=== PATIENT | female | born 1995 | race Caucasian/White ===

== ENCOUNTER 2018-08-03 19:29 | Inpatient (IN) | payer OTHER ==
[2018-08-03] MEDS: HYDROmorphONE 2 MG/ML SYG IV ×2 (19:46→22:44)
[2018-08-03] MEDS: ONDANSETRON 4 MG INJ IV ×3 (19:46→22:44)
[2018-08-03] MEDS: HYDROmorphONE 1 MG/ML SYG IV (20:25)
[2018-08-03 21:11] LABS: ADD MAN DIFF? NO
[2018-08-03 21:16] LABS: WHITE BLOOD COUNT 9.6 10^3/ul (4.8-10.8)
[2018-08-03 21:16] LABS: BASOPHILS % 0.3 % (0.0-2.0); EOSINOPHILS # 0.1 10^3/ul (0.0-0.5); HEMATOCRIT 39.8 % (37.0-47.0); HEMOGLOBIN 12.7 g/dl (12.0-16.0); LYMPHOCYTES # 2.6 10^3/ul (0.8-2.9); LYMPHOCYTES % 27.2 % (15.0-51.0); MEAN CORPUSCULAR HEMOGLOBIN 27.7 pg (29.0-33.0); MEAN CORPUSCULAR HGB CONC 31.9 g/dl (32.0-37.0); MEAN CORPUSCULAR VOLUME 86.7 fl (82.0-101.0); MEAN PLATELET VOLUME 11.3 fl (7.4-10.4); MONOCYTE # 0.6 10^3/ul (0.3-0.9); MONOCYTES % 6.4 % (0.0-11.0); NEUTROPHIL # 6.2 10^3/ul (1.6-7.5); NEUTROPHILS % 64.8 % (39.0-77.0); PLATELET COUNT 244 10^3/UL (140-415); RED BLOOD COUNT 4.59 10^6/ul (4.20-5.40)
[2018-08-03 21:34] LABS: INR 0.89; PROTIME 12.2 Sec (11.9-14.9)
[2018-08-03 21:35] LABS: PARTIAL THROMBOPLASTIN TIME 26.8 Sec (23.0-35.0)
[2018-08-03 21:40] LABS: ALANINE AMINOTRANSFERASE 20 IU/L (13-69); ALBUMIN 4.4 g/dl (3.3-4.9); ALBUMIN/GLOBULIN RATIO 1.18; ALKALINE PHOSPHATASE 87 IU/L (42-121); ANION GAP 10 (5-13); ASPARTATE AMINO TRANSFERASE 20 IU/L (15-46); BILIRUBIN,INDIRECT 0.3 mg/dl (0-1.1); BILIRUBIN,TOTAL 0.3 mg/dl (0.2-1.3); BLOOD UREA NITROGEN 10 mg/dl (7-20); CALCIUM 9.5 mg/dl (8.4-10.2); CARBON DIOXIDE 24 mmol/L (21-31); CHLORIDE 108 mmol/L (97-110); CREATININE 0.73 mg/dl (0.44-1.00); Estimated GFR > 60 mL/min (>60); GLUCOSE 104 mg/dl (70-220); POTASSIUM 3.7 mmol/L (3.5-5.1); SODIUM 142 mmol/L (135-144); TOTAL PROTEIN 8.1 g/dl (6.1-8.1)
[2018-08-03] MEDS ORDERED: ACETAMINOPHEN 325 MG TAB PO (22:30)
[2018-08-04] MEDS: SOD CHLORIDE 0.9% 100 ML (00:04)
[2018-08-04] MEDS: IOHEXOL 300MG/ML 150 ML BTL (00:04)
[2018-08-04] MEDS ORDERED: HYDROCODONE/APAP (5/325) TAB PO (01:30)
[2018-08-04] MEDS ORDERED: NACL 0.9% 3 ML SYG IV ×2 (01:30→08:30)
[2018-08-04] MEDS ORDERED: ACETAMINOPHEN 325 MG TAB PO (01:30)
[2018-08-04] MEDS ORDERED: DOCUSATE SODIUM 100 MG CAP PO (01:30)
[2018-08-04] MEDS ORDERED: ONDANSETRON 4 MG TAB PO (01:30)
[2018-08-04] MEDS: FAMOTIDINE 20 MG TAB PO ×3 (01:52→20:17)
[2018-08-04] MEDS: HYDROCODONE/APAP (5/325) TAB PO (01:53)
[2018-08-04] MEDS: D5-NS + KCL 20 MEQ 1,000 ML IV ×3 (01:53→20:17)
[2018-08-04] MEDS: HYDROmorphONE 1 MG/ML SYG IV ×3 (05:30→20:16)
[2018-08-04] MEDS ORDERED: PROPOFOL 20 ML (06:24)
[2018-08-04 06:26] LABS: ADD UMIC YES; UR ASCORBIC ACID NEGATIVE (NEGATIVE); UR BACTERIA FEW /HPF (NONE SEEN); UR BILIRUBIN (Dip) NEGATIVE (NEGATIVE); UR BLOOD (Dip) 3+ mg/dL (NEGATIVE); UR CALCIUM OXALATE CRYSTAL FEW /HPF (NONE SEEN); UR CLARITY SLIGHTLY CLOUDY (CLEAR); UR COLOR AMBER (YELLOW); UR GLUCOSE (Dip) NEGATIVE (NEGATIVE); UR KETONES (Dip) NEGATIVE (NEGATIVE); UR LEUKOCYTE ESTERASE (Dip) NEGATIVE Leu/ul (NEGATIVE); UR MUCUS FEW /HPF (NONE SEEN); UR NITRITE (Dip) NEGATIVE (NEGATIVE); UR RBC > 182 /HPF (0-5); UR SPECIFIC GRAVITY (Dip) 1.059 (1.003-1.030); UR SQUAMOUS EPITHELIAL CELL FEW /HPF (FEW); UR TOTAL PROTEIN (Dip) 1+ mg/dl (NEGATIVE); UR UROBILINOGEN (Dip) NEGATIVE (NEGATIVE); UR WBC 20 /HPF (0-5)
[2018-08-04] MEDS ORDERED: ROCURONIUM 50 MG INJ (06:39)
[2018-08-04] MEDS ORDERED: DEXAMETHASONE 4 MG/ML 5 ML INJ (06:39)
[2018-08-04] MEDS ORDERED: LIDOCAINE 2% (SDV) 5 ML INJ (06:39)
[2018-08-04] MEDS ORDERED: ONDANSETRON 4 MG INJ (06:40)
[2018-08-04] MEDS ORDERED: morphine 10 MG INJ (06:52)
[2018-08-04] MEDS ORDERED: KETOROLAC 30 MG INJ (07:49)
[2018-08-04] MEDS ORDERED: FENTAnyl 50 MCG/ML VIAL (08:25)
[2018-08-04] MEDS: LACTATED RINGER'S 1,000 ML IV ×2 (08:29→19:51)
[2018-08-04] MEDS ORDERED: DIPHENHYDRAMINE 50 MG INJ IV ×2 (08:30)
[2018-08-04] MEDS ORDERED: oxyCODONE 5 MG TAB PO (08:30)
[2018-08-04] MEDS ORDERED: hydrALAzine 20 MG INJ IV (08:30)
[2018-08-04] MEDS ORDERED: NA PHOSPHATE/BIPHOS 133 ML ENEMA PR (08:30)
[2018-08-04] MEDS ORDERED: SENNA/DOCUSATE NA (8.6MG/50MG) TAB PO (08:30)
[2018-08-04] MEDS ORDERED: EPHEDrine 25 MG/5 ML SYG IV (08:30)
[2018-08-04] MEDS ORDERED: KETOROLAC 30 MG INJ IV (08:30)
[2018-08-04] MEDS ORDERED: BISACODYL 10 MG SUPP PR (08:30)
[2018-08-04] MEDS ORDERED: LABETALOL HCL 20MG INJ IV (08:30)
[2018-08-04] MEDS: CEFAZOLIN 2 GM/50 ML (PMX) 50 ML IVPB ×2 (08:30→15:27)
[2018-08-04] MEDS ORDERED: FENTAnyl 50 MCG/ML VIAL IV ×2 (08:30)
[2018-08-04] MEDS ORDERED: MEPERIDINE 25 MG INJ IV (08:30)
[2018-08-04] MEDS ORDERED: METOCLOPRAMIDE 10 MG INJ IV (08:30)
[2018-08-04] MEDS ORDERED: NALOXONE (0.4 MG/ML) INJ IV (08:30)
[2018-08-04] MEDS ORDERED: MAGNESIUM HYDROXIDE 30ML CUP PO (08:30)
[2018-08-04] MEDS ORDERED: HYDROmorphONE 1 MG/5 ML IV SYRINGE IV (08:30)
[2018-08-04] MEDS ORDERED: ALBUTEROL 0.083% (NEB) 2.5 MG/3 ML AMP HHN (08:30)
[2018-08-04] MEDS ORDERED: MIDAZOLAM 1 MG/ML 2 ML INJ IV (08:30)
[2018-08-04] MEDS: FENTAnyl 50 MCG/ML VIAL IV ×2 (08:34→08:36)
[2018-08-04] MEDS: HYDROmorphONE 1 MG/5 ML IV SYRINGE IV ×2 (08:47→09:02)
[2018-08-04] MEDS: ONDANSETRON 4 MG INJ IV (08:48)
[2018-08-04] MEDS: DOCUSATE SODIUM 100 MG CAP PO (12:35)
[2018-08-04] MEDS: oxyCODONE 5 MG TAB PO ×3 (12:35→22:46)
[2018-08-04] MEDS: ACETAMINOPHEN 500 MG TAB PO ×2 (14:00→21:53)
[2018-08-04] MEDS: GABAPENTIN 300 MG CAP PO (20:17)
[2018-08-05] MEDS: CEFAZOLIN 2 GM/50 ML (PMX) 50 ML IVPB (00:01)
[2018-08-05] MEDS: D5-NS + KCL 20 MEQ 1,000 ML IV (00:02)
[2018-08-05] MEDS: oxyCODONE 5 MG TAB PO ×4 (03:13→15:46)
[2018-08-05 04:58] LABS: ADD MAN DIFF? NO; BASOPHILS % 0.2 % (0.0-2.0); EOSINOPHILS % 0.2 % (0.0-7.0); HEMATOCRIT 30.1 % (37.0-47.0); HEMOGLOBIN 9.7 g/dl (12.0-16.0); LYMPHOCYTES # 1.8 10^3/ul (0.8-2.9); LYMPHOCYTES % 18.8 % (15.0-51.0); MEAN CORPUSCULAR HEMOGLOBIN 28.3 pg (29.0-33.0); MEAN CORPUSCULAR HGB CONC 32.2 g/dl (32.0-37.0); MEAN CORPUSCULAR VOLUME 87.8 fl (82.0-101.0); MEAN PLATELET VOLUME 11.4 fl (7.4-10.4); MONOCYTE # 0.9 10^3/ul (0.3-0.9); MONOCYTES % 9.4 % (0.0-11.0); NEUTROPHIL # 6.9 10^3/ul (1.6-7.5); PLATELET COUNT 194 10^3/UL (140-415); RED BLOOD COUNT 3.43 10^6/ul (4.20-5.40); RED CELL DISTRIBUTION WIDTH 13.8 % (11.5-14.5)
[2018-08-05 04:58] LABS: WHITE BLOOD COUNT 9.7 10^3/ul (4.8-10.8)
[2018-08-05 05:22] LABS: ANION GAP 7 (5-13); BLOOD UREA NITROGEN 4 mg/dl (7-20); CALCIUM 8.4 mg/dl (8.4-10.2); CARBON DIOXIDE 25 mmol/L (21-31); CHLORIDE 108 mmol/L (97-110); CREATININE 0.59 mg/dl (0.44-1.00); Estimated GFR > 60 mL/min (>60); GLUCOSE 113 mg/dl (70-220); POTASSIUM 3.6 mmol/L (3.5-5.1); SODIUM 140 mmol/L (135-144)
[2018-08-05 05:38] LABS: FREE THYROXINE INDEX (Calc) 3.25 ug/ml (0.65-3.89); T3 UPTAKE 41.7 % (23.5-40.5); T4 (THYROXINE) 7.8 ug/dl (5.5-11.0)
[2018-08-05] MEDS: ACETAMINOPHEN 500 MG TAB PO ×2 (05:41→13:10)
[2018-08-05 06:58] LABS: HEMOGLOBIN A1C 5.2 % (0-5.9)
[2018-08-05] MEDS ORDERED: ONDANSETRON 4 MG INJ IV (08:30)
[2018-08-05] MEDS: LACTATED RINGER'S 1,000 ML IV (09:04)
[2018-08-05] MEDS: DOCUSATE SODIUM 100 MG CAP PO (09:58)
[2018-08-05] MEDS: FAMOTIDINE 20 MG TAB PO (09:59)
[2018-08-05] MEDS: ENOXAPARIN 40 MG/0.4 ML SYG SC (10:05)
[2018-08-05] MEDS: HYDROmorphONE 1 MG/ML SYG IV (13:09)
[2018-08-06] MEDS ORDERED: PANTOPRAZOLE (EC) 40 MG TAB PO (06:00)
== END 2018-08-05 16:25 | disposition home health service (06) | DRG 494 ==
LOC: MS1 22:23 → E/R 19:29 → MS1 08-04 00:25
PROC: 0QSG35Z Reposition Right Tibia with External Fixation Device, Percutaneous Approach (ICD-10-PCS; principal; 2018-08-04 06:00)
DX: S82.871A Displaced pilon fracture of right tibia, initial encounter for closed fracture (principal); V43.52XA Car driver injured in collision with other type car in traffic accident, initial encounter; Y92.410 Unspecified street and highway as the place of occurrence of the external cause; F17.200 Nicotine dependence, unspecified, uncomplicated
CPT/HCPCS: 36415; 70450; 71045; 72125; 72128; 72131; 73590; 73610-RT; 73700; 74178; 80048; 80053; 81001; 83036; 84436; 84479; 84703; 85025; 85610; 85730; 93005; 96374; 96375; 96376; 97161; 97167; 99285-25